=== PATIENT | female | born 1990 | race Caucasian/White ===

== ENCOUNTER → 2022-05-26 10:19 | Outpatient (BNVA) | payer OTHER, SELFPAY | PROVIDERS: Family Provider Pediatrics; PCP Nurse Practitioner Family; Visit Provider Obstetrics & Gynecology | DX: Z01.419 Encounter for gynecological examination (general) (routine) without abnormal findings (principal) | CPT/HCPCS: 87624 ==

== ENCOUNTER → 2024-06-12 15:41 | Outpatient (BNVA) | payer OTHER, SELFPAY | PROVIDERS: Family Provider Pediatrics; PCP Nurse Practitioner Family; Visit Provider Nurse Practitioner Women's Health | DX: Z01.419 Encounter for gynecological examination (general) (routine) without abnormal findings (principal); Z00.00 Encounter for general adult medical examination without abnormal findings | CPT/HCPCS: 80053; 82306; 83036; 84443; 85025 ==

== ENCOUNTER 2025-01-08 05:00 | Outpatient (RCR) | payer OTHER, SELFPAY | END 2025-02-07 23:59 | disposition home or self-care (01) | LOC: SPT 05:00 | PROVIDERS: PCP Nurse Practitioner Family; Visit Provider Pediatrics | DX: N81.10 Cystocele, unspecified (principal); N81.4 Uterovaginal prolapse, unspecified; N39.3 Stress incontinence (female) (male); K59.00 Constipation, unspecified | CPT/HCPCS: 97110; 97161; 97530 ==

== ENCOUNTER 2025-02-08 06:00 | Outpatient (RCR) | payer OTHER, SELFPAY | END 2025-03-10 23:59 | disposition home or self-care (01) | LOC: SPT 06:00 | PROVIDERS: PCP Nurse Practitioner Family; Visit Provider Pediatrics | DX: N81.10 Cystocele, unspecified (principal); N81.4 Uterovaginal prolapse, unspecified; N39.3 Stress incontinence (female) (male); K59.00 Constipation, unspecified | CPT/HCPCS: 97110 ==

== ENCOUNTER 2025-03-11 05:00 | Outpatient (RCR) | payer OTHER, SELFPAY | END 2025-04-09 23:59 | disposition home or self-care (01) | LOC: SPT 05:00 | PROVIDERS: PCP Nurse Practitioner Family; Visit Provider Pediatrics | DX: K59.00 Constipation, unspecified (principal); N39.3 Stress incontinence (female) (male); N81.4 Uterovaginal prolapse, unspecified; N81.10 Cystocele, unspecified | CPT/HCPCS: 97110 ==

== ENCOUNTER 2025-04-10 06:30 | Outpatient (RCR) | payer OTHER, SELFPAY | END 2025-04-23 12:34 | disposition home or self-care (01) | LOC: SPT 06:30 | PROVIDERS: PCP Nurse Practitioner Family; Visit Provider Pediatrics | DX: N81.10 Cystocele, unspecified (principal); N81.4 Uterovaginal prolapse, unspecified; N39.3 Stress incontinence (female) (male); K59.00 Constipation, unspecified | CPT/HCPCS: 97110 ==